=== PATIENT | male | born 1960 | race Two or more races ===

== ENCOUNTER 2018-07-15 11:43 | Outpatient (CLI) | payer OTHER | END 2018-07-15 13:33 | disposition home or self-care (01) | LOC: RAD 11:43 | DX: S82.892A Other fracture of left lower leg, initial encounter for closed fracture (principal) ==

== ENCOUNTER 2018-11-21 11:36 | Emergency (ER) | payer OTHER ==
[~2018-11-21] VITALS: Ht 172.7 cm; Wt 93.0 kg
[2018-11-21] MEDS ORDERED: TIVICAY10 MG (11:45)
[2018-11-21] MEDS ORDERED: NEURONTIN800 MG (11:46)
[2018-11-21] MEDS ORDERED: SINGULAIR10 MG (11:46)
[2018-11-21] MEDS ORDERED: DESCOVY 200-251 EACH (11:46)
[2018-11-21] MEDS ORDERED: TENORMIN25 MG (11:47)
[2018-11-21] MEDS ORDERED: LIPITOR20 MG (11:47)
[2018-11-21] MEDS ORDERED: ASA81 MG (11:47)
[2018-11-21] MEDS ORDERED: ATIVAN2 M1 (13:32)
[2018-11-21] MEDS ORDERED: BUPROPION XL150 MG (13:33)
[2018-11-21] MEDS ORDERED: SEROQUEL400 MG (13:34)
[2018-11-21] MEDS ORDERED: WELLBUTRIN XL300 MG (13:34)
[2018-11-21] MEDS ORDERED: MIRTAZAPINE45 MG (13:35)
[2018-11-21] MEDS ORDERED: PEPCID40 MG (13:35)
[2018-11-21] MEDS ORDERED: QUETIAPINE FUM100 MG (13:35)
[2018-11-21] MEDS ORDERED: ALBUTEROL2.5 MG/3 M (13:36)
== END 2018-11-21 18:26 | disposition home or self-care (01) ==
LOC: ER 11:36
DX: K57.92 Diverticulitis of intestine, part unspecified, without perforation or abscess without bleeding (principal)